=== PATIENT | female | born 1995 | race Hispanic/Latino ===

== ENCOUNTER 2017-03-19 15:57 | Emergency (ER) | payer MEDICAID ==
[~2017-03-19] VITALS: Ht 167.6 cm; Wt 95.3 kg
[~2017-03-19 15:57] MED LIST: CRUT1EAC7 MC; CYCL10TA9 PO; HYDR-3714 PO; HYDR-3812 PO; HYDR-757 PO; LISI1TAB PO; METO25TA PO; NAPR-243 PO; NAPR250T PO; ORPH100T PO; PRD20T PO; TRAM50TA2 PO
--- OUTSIDE RECORDS SUMMARY | 2017-03-19 16:02 | XMS REPORT | Continuity of Care Document ---
Author Author [facility] Organization [facility] Address Unknown Phone Unavailable Allergies Active Description Code Type Severity Reaction Onset Reported/Identified Relationship to Patient Clinical Status Yes Penicillins [id number] Drug Allergy Unknown N/A 09/04/2013 Yes ketorolac [id number] Drug Allergy Unknown RASH 04/10/2014 Yes trazodone [id number] Drug Allergy Moderate N/A 03/22/2015 Yes tramadol [id number] Drug Allergy Unknown N/A 05/26/2015 Yes acetaminophen [id number] Drug Allergy Unknown N/A 08/28/2015 Yes diphenhydramine [id number] Drug Allergy Unknown N/A 08/28/2015 Yes lisinopril [id number] Drug Allergy Unknown N/A 08/28/2015 Yes propoxyphene [id number] Drug Allergy Unknown N/A 08/28/2015 Medications Problems Date Dx Coded Attending Type Code Diagnosis Diagnosed By 09/04/2013 RADHA STEARNS FRUIT CULLER Ot 845.00 09/04/2013 RADHA STEARNS FRUIT CULLER Ot 959.7 09/04/2013 RADHA STEARNS FRUIT CULLER Ot E000.8 09/04/2013 RADHA STEARNS FRUIT CULLER Ot E927.0 10/14/2013 RADHA STEARNS FRUIT CULLER Ot 719.47 10/14/2013 RADHA STEARNS FRUIT CULLER Ot 845.00 10/14/2013 RADHA STEARNS FRUIT CULLER Ot E000.8 10/14/2013 RADHA STEARNS FRUIT CULLER Ot E927.0 11/27/2013 RADHA STEARNS FRUIT CULLER Ot 724.2 01/30/2014 FLO GONZALEZ DO Ot 724.5 01/30/2014 FLO GONZALEZ DO Ot E000.8 01/30/2014 FLO GONZALEZ DO Ot E884.9 04/10/2014 RADHA STEARNS FRUIT CULLER Ot 724.2 04/10/2014 RADHA STEARNS FRUIT CULLER Ot 847.1 04/10/2014 RADHA STEARNS FRUIT CULLER Ot E000.8 04/10/2014 RADHA STEARNS FRUIT CULLER Ot E849.0 04/10/2014 RADHA STEARNS FRUIT CULLER Ot E881.0 03/22/2015 KETAN CAMPBELL Ot F17.210 03/22/2015 KETAN CAMPBELL L Ot S29.002A 03/22/2015 KETAN CAMPBELL L Ot W17.89XA 03/22/2015 HERLINDA CAMPBELLEN L Ot Y92.018 03/22/2015 HERLINDA CAMPBELLEN L Ot Y99.8 05/26/2015 KETAN CAMPBELL L Ot F17.210 05/26/2015 KETAN CAMPBELL L Ot K03.81 05/26/2015 KETAN CAMPBELL L Ot M26.62 08/28/2015 KETAN CAMPBELL L Ot S83.91XA SPRAIN OF UNSPECIFIED SITE OF RIGHT KNEE 08/28/2015 KETAN CAMPBELL L Ot X58.XXXA EXPOSURE TO OTHER SPECIFIED FACTORS, INI 08/28/2015 LISA SHARMA KETAN L Ot Y99.8 OTHER EXTERNAL CAUSE STATUS Procedures Results Encounters ACCT No. Visit Date/Time Discharge Status Pt. Type Provider Facility Loc./Unit Complaint [id number] 08/28/2015 19:37:00 2015 21:19:00 DIS Emergency KETAN CAMPBELL [facility] ER [id number] 05/26/2015 14:12:00 2015 16:39:00 DIS Emergency KETAN CAMPBELL [facility] ER [id number] 03/22/2015 13:00:00 2014 15:04:00 DIS Emergency KETAN CAMPBELL [facility] ER [id number] 04/10/2014 14:48:00 2013 15:34:00 DIS Emergency RADHA STEARNS APRN [facility] ER [id number] 01/30/2014 16:04:00 2013 16:39:00 DIS Emergency CARLOS DO FLO Adis [facility] ER [id number] 11/27/2013 13:54:00 2013 14:31:00 DIS Emergency RADHA STEARNS APRN [facility] ER [id number] 10/14/2013 17:44:00 2013 18:46:00 DIS Emergency RADHA STEARNS APRN [facility] ER [id number] 09/04/2013 20:57:00 2013 22:02:00 DIS Emergency RADHA STEARNS APRN [facility] ER
--- NOTE | 2017-03-19 16:19 | ED EENT ---
History of Present Illness General Chief Complaint: Dental Problems/Pain Stated Complaint: DENTAL PAIN Nursing Triage Note: PATIENT BROKE A TOOTH 3 DAYS AGO AND IT IS CAUSING PAIN. SHE HAS NOT SEEN A DENTIST. Source: patient Exam Limitations: no limitations History of Present Illness Time seen by provider: 16:19 Initial Comments 21-year-old female patient presents to the emergency department with complaints of a broken tooth and dental pain for 3 days. Patient denies contacting a dentist. Denies using Tylenol and ibuprofen pyqc-iey-ekgarxm for pain. States she has had bad teeth for years. Timing/Duration: abrupt, other (3 day onset) Location: dental Prearrival Treatment: no prearrival treatment Modifying Factors: Worse With Other (worse with chewing, palpation, and hot/ cold liquids) Allergies and Home Medications Allergies Coded Allergies: trazodone (Verified Allergy, Intermediate, 03/22/15) Penicillins (Unverified Allergy, Unknown, 09/04/13) diphenhydramine (Verified Allergy, Unknown, 08/28/15) ketorolac (Unverified Allergy, Unknown, RASH, 04/10/14) lisinopril (Verified Allergy, Unknown, 08/28/15) propoxyphene (Verified Allergy, Unknown, 08/28/15) tramadol (Verified Adverse Reaction, Unknown, 05/26/15) seizure Home Medications Cyclobenzaprine HCl 10 Mg Tablet, 10 MG PO Q8H PRN for SPASMS, #10 Ref 0 Prescribed by: KETAN GONZALEZ on 03/22/15 1452 Hydrocodone/Acetaminophen 1 Each Tablet, 1 EACH PO Q4H PRN for PAIN, #14 Ref 0 Prescribed by: KETAN GONZALEZ on 08/28/15 2111 Hydrocodone/Acetaminophen 1 Each Tablet, 1 EACH PO Q6H PRN for PAIN, #4 Ref 0 Prescribed by: KETAN GONZALEZ on 03/19/17 1633 Prednisone 20 Mg Tab, 40 MG PO DAILY, #10 Ref 0 Prescribed by: KETAN GONZALEZ on 03/22/15 1452 Review of Systems Constitutional: No chills, No fever, No malaise Eyes: No Symptoms Reported Ears: No Symptoms Reported Nose: no symptoms reported Mouth: see HPI, pain, denies swelling Throat: denies pain, denies swelling, denies neck stiffness, denies hoarse, denies aphonia, denies muffled, denies painful swallowing, denies difficulty with fluids Respiratory: no symptoms reported Cardiovascular: no symptoms reported Gastrointestinal: no symptoms reported Skin: no symptoms reported Neurological: Denies Headache All Other Systems Reviewed Negative Unless Noted: Yes (Negative excepted noted.) Past Jlusnbq-Jrlfjp-Diwmcf Hx Patient Social History Recent Foreign Travel: No Contact w/Someone Who Travel: No Recent Infectious Disease Expo: No Immunizations Up To Date Tetanus Booster (TDap): Unknown PED Vaccines UTD: Yes Seasonal Allergies Seasonal Allergies: No Surgeries History of Surgeries: Yes Surgeries: Section, Orthopedic Respiratory History of Respiratory Disorde: No Cardiovascular History of Cardiac Disorders: Yes Cardiac Disorders: Hypertension Neurological History of Neurological Disord: No Reproductive System Hx 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 Genitourinary History of Genitourinary Disor: No Gastrointestinal History of Gastrointestinal Di: No Reviewed Nursing Assessment Reviewed/Agree w Nursing PMH: Yes Family Medical History Significant Family History: No Pertinent Family Hx Physical Exam Vital Signs Vital Sign - Last 12Hours 03/19/17 16:05 Temp 98.1 Pulse 90 Resp 18 B/P (MAP) 135/77 Pulse Ox 93 O2 Delivery Room Air General Appearance: WD/WN, no apparent distress Eyes: bilateral eye normal inspection, bilateral eye PERRL, bilateral eye EOMI Ears: bilateral ear auricle normal, bilateral ear canal normal, bilateral ear TM normal Nose: normal inspection Mouth/Throat: pharynx normal, dental tenderness (left lower dental tenderness with multiple caries and broken teeth noted. ), No excessive drooling, No mandibular swelling, No maxillary swelling, No trismus, No uvula swelling, No voice changes, No other (no swelling of the gums noted. ) Neck: non-tender, full range of motion, supple, normal inspection Cardiovascular: regular rate, rhythm, no murmur Respiratory: lungs clear, normal breath sounds, no respiratory distress, no accessory muscle use Neurologic/Psychiatric: alert, normal mood/affect, oriented x 3 Skin: normal color, warm/dry Progress/Results/Core Measures Results/Orders My Orders Orders - KETAN GONZALEZ Lidocaine 2% Viscous 15 Ml (Xylocaine Vi (03/19/17 16:30) Benzocaine Extension Tube (Hurricaine Ex (03/19/17 16:30) Vital Signs/I&O Vital Sign - Last 12Hours 03/19/17 16:05 Temp 98.1 Pulse 90 Resp 18 B/P (MAP) 135/77 Pulse Ox 93 O2 Delivery Room Air Blood Pressure Mean: 96 Departure Communication (Admissions) Progress Notes Patient seen and evaluated. Plan for dsch to home with f/u as an outpatient with the dentist of her choice for repair. Patient to call for appointment time. Impression Impression: Primary Impression: Dental caries Disposition: HOME, SELF-CARE Condition: Improved Departure-Patient Inst. Decision time for Depature: 16:28 Referrals: NO,LOCAL PHYSICIAN (PCP/Family) Primary Care Physician Patient Instructions: Fractured Tooth (DC), Dental Pain (DC) Add. Discharge Instructions: All discharge instructions reviewed with patient and/or family. Voiced understanding. Medications as instructed. Tylenol extra strength over-the- counter as directed for pain. Body temperature liquids and foods. Drink plenty of fluids. Ice pack or heating pad if needed. Follow-up with the dentist of your choice for recheck and dental repair. Call for appointment time. Return to the emergency department for worsened symptoms or any other concerns. Scripts Hydrocodone/Acetaminophen (Hydrocodon -Acetaminophen 5-325) 1 Each Tablet 1 EACH PO Q6H Y for PAIN, #4 TAB 0 Refills Prov: KETAN GONZALEZ 03/19/17 KETAN GONZALEZ Mar 19, 2017 16:19
[2017-03-19] MEDS ORDERED: HYDR-3812 PO ×2 (16:29→16:33)
[2017-03-19] MEDS ORDERED: LIDOCAINE 2% VISCOUS 15 ML UDC PO ONE (16:30)
[2017-03-19] MEDS ORDERED: HURRICAINE EXT TUBE (BENZOCAINE) XX ONE (16:30)
[2017-03-19 17:23] VITALS: BP 135/77
== END 2017-03-19 17:23 | disposition home or self-care (01) ==
LOC: EDUNIT# 15:57 → ER 15:58
DX: K02.9 Dental caries, unspecified (principal); I10 Essential (primary) hypertension; Z97.5 Presence of (intrauterine) contraceptive device; Z87.59 Personal history of other complications of pregnancy, childbirth and the puerperium
CPT/HCPCS: 99282

== ENCOUNTER 2018-01-23 13:11 | Emergency (ER) | payer MEDICAID ==
[~2018-01-23] VITALS: Ht 167.6 cm; Wt 96.2 kg
[~2018-01-23 13:11] MED LIST changes: +ACHD5005 PO; -HYDR-3812 PO
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
[2018-01-23] MEDS ORDERED: HYDR-4226 PO (15:31)
--- NOTE | 2018-01-23 15:31 | Diagnostic Imaging Report ---
INDICATION: Status post fall today, pain post fall. TECHNIQUE: Three views of the left wrist. CORRELATION STUDY: None. FINDINGS: Comminuted fracture involving the lunate. There is slight outward displacement of some of the fracture fragments; otherwise, the alignment is relatively anatomic. No additional acute bony abnormality suggested. Overall alignment generally anatomic. Soft tissue swelling present. IMPRESSION: Comminuted slightly outwardly displaced fracture involving the lunate. Dictated by: Dictated on workstation # [id number]
[2018-01-23 15:36] VITALS: BP 126/79
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
== END 2018-01-23 15:36 | disposition home or self-care (01) ==
LOC: EDUNIT# 13:11 → ER 13:18
DX: S62.92XA Unspecified fracture of left hand, initial encounter for closed fracture (principal); M25.532 Pain in left wrist; I10 Essential (primary) hypertension; Z97.5 Presence of (intrauterine) contraceptive device; Z79.52 Long term (current) use of systemic steroids; Z87.59 Personal history of other complications of pregnancy, childbirth and the puerperium; Z88.0 Allergy status to penicillin; Z88.4 Allergy status to anesthetic agent; Z88.6 Allergy status to analgesic agent; Z88.8 Allergy status to other drugs, medicaments and biological substances; V48.6XXA Car passenger injured in noncollision transport accident in traffic accident, initial encounter
CPT/HCPCS: 73110

== ENCOUNTER 2018-01-25 15:51 | Emergency (ER) | payer MEDICAID ==
[~2018-01-25 15:51] MED LIST changes: +HYDR-4226 PO
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
== END 2018-01-25 16:18 | disposition left against medical advice (07) ==
LOC: EDUNIT# 15:51 → ER 15:53
DX: M25.432 Effusion, left wrist (principal)

== ENCOUNTER 2018-02-05 18:04 | Emergency (ER) | payer SELFPAY ==
[~2018-02-05] VITALS: Ht 167.6 cm; Wt 96.2 kg
--- NOTE | 2018-02-05 20:19 | ED Upper Extremity ---
General Chief Complaint: Upper Extremity Stated Complaint: L WRIST PAIN,NOT WEARING SPLINT LIKE ADVISED Nursing Triage Note: LEFT WRIST PAIN. Nursing Sepsis Screen: No Definite Risk Source: patient, old records History of Present Illness Date Seen by Provider: Feb 05, 2018 Time Seen by Provider: 19:55 Initial Comments PT ARRIVES VIA POV C/O LEFT WRIST PAIN STATES SHE FELL ON 01/23/18 AND FRACTURED HER WRIST--SEEN HERE AND DX WITH LUNATE FRACTURE PT WAS SPLINTED, AND INSTRUCTED TO FOLLOW UP WITH [facility]. 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 AND HER WRIST POPPED SINCE THEN, SHE HAS HAD INCREASED PAIN HAS NOT TAKEN ANYTHING FOR PAIN PT HAS BEEN HERE 12 TIMES SINCE 2013--VARIOUS INJURIES/PAIN COMPLAINTS PER [facility], PT HAS RECEIVED 21 RX'S FOR NARCOTICS, BY 15 DIFFERENT PROVIDERS, FILLED AT 8 DIFFERENT PHARMACIES SINCE 03/2017 PT STATES SHE DOES NOT HAVE A PCP Allergies and Home Medications Allergies Coded Allergies: trazodone (Verified Allergy, Intermediate, 03/22/15) Penicillins (Unverified Allergy, Unknown, 09/04/13) diphenhydramine (Verified Allergy, Unknown, 08/28/15) ketorolac (Unverified Allergy, Unknown, RASH, 04/10/14) lisinopril (Verified Allergy, Unknown, 08/28/15) propoxyphene (Verified Allergy, Unknown, 08/28/15) tramadol (Verified Adverse Reaction, Unknown, 05/26/15) seizure Home Medications No Active Prescriptions or Reported Meds Patient Home Medication List Home Medication List Reviewed: Yes Review of Systems Constitutional: no symptoms reported : No (LMP 2 YEARS AGO--HAS IUD IN PLACE ) Control/STD Prophylaxis: IUD Musculoskeletal: see HPI Skin: no symptoms reported Psychiatric/Neurological: No Symptoms Reported Past Utdedok-Dhwmer-Jqbhlu Hx Patient Social History Alcohol Use: Denies Use Recreational Drug Use: No Smoking Status: Current Everyday Smoker Type Used: Cigarettes 2nd Hand Smoke Exposure: Yes Recent Foreign Travel: No Contact w/Someone Who Travel: No Recent Infectious Disease Expo: No Recent Hopitalizations: No Immunizations Up To Date Tetanus Booster (TDap): Unknown PED Vaccines UTD: Yes Seasonal Allergies Seasonal Allergies: No Past Medical History Surgeries: Yes (BILATERAL ANKLE SURGERIES) Section, Orthopedic Respiratory: No Cardiac: Yes Hypertension Neurological: No : No (IUD) 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 oz. 96.433780xh; 34.21 BMI Method:Stated General Appearance: WD/WN, no apparent distress Elbow/Forearm: normal inspection Wrist: Yes bone tenderness, Yes limited ROM, Yes pain, Yes soft tissue tenderness, Yes swelling (SLIGHT SWELLING. 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-XII nml as tested, no motor/sensory deficits, alert, normal mood/affect, oriented x 3 Skin: normal color, warm/dry Procedures/Interventions Splinting and Joint Reduction : Hand-Made Type: orthoglass Splint Application: Short Arm Progress/Results/Core Measures Results/Orders My Orders Orders - FLO GONZALEZ DO Wrist, Left, 3 Views Or More (02/05/18 19:58) Vital Signs/I&O 02/05/18 19:51 Temp 97.7 Pulse 80 Resp 18 B/P (MAP) 157/80 (105) Pulse Ox 96 O2 Delivery Room Air Blood Pressure Mean: 105 Progress Progress Note : Progress Note NO ORTHOPEDIC COVERAGE TODAY Diagnostic Imaging Comments XRAYS LEFT WRIST--FRAGMENTED LUNATE, UNCHANGED FROM PREVIOUS, PER RADIOLOGIST REPORT @ 2031 Reviewed: Reviewed by Me Departure Impression Primary Impression: Closed left lunate fracture Disposition: HOME, SELF-CARE Condition: Stable Departure-Patient Inst. Referrals: NO,LOCAL PHYSICIAN (PCP) Primary Care Physician KARENA ROJAS MD [facility]TH[facility] Patient Instructions: SPLINT CARE, Wrist Fracture (DC) Add. Discharge Instructions: WEAR SPLINT AT ALL TIMES ICE TO AREA AT 20 MINUTE INTERVALS ELEVATE HAND MUCH POSSIBLE TYLENOL AND MOTRIN NEEDED FOR PAIN FOLLOW UP WITH ORTHOPEDIC SURGEON OF CHOICE NEXT WEEK FOR FURTHER CARE--CALL IN AM FOR APPOINTMENT All discharge instructions reviewed with patient and/or family. Voiced understanding. Scripts No Active Prescriptions or Reported Meds FLO GONZALEZ DO Feb 05, 2018 20:19
--- NOTE | 2018-02-05 20:28 | Diagnostic Imaging Report ---
EXAMINATION: Left wrist, 3 views. COMPARISON: January 23, 2018. HISTORY: 22-year-old female, injury. Left wrist pain. FINDINGS: There is redemonstrated fragmentation of the lunate. The overall appearance is unchanged since the comparison exam. There is apparent negative ulnar variance. Additional bone alignment is unremarkable. There is no otherwise identified fracture. There is no radiopaque foreign body. IMPRESSION: 1. Fragmented lunate with negative ulnar variance. The lunate is not particularly appear dense, radiographically. This potentially may reflect avascular necrosis of the lunate rather than a comminuted lunate fracture. Recommend correlation clinically and further assessment with MRI left wrist if the distinction may impact management. 2. No otherwise identified bone abnormality of the left wrist. Dictated by: Dictated on workstation # [id number]
[2018-02-05 20:54] VITALS: BP 157/80
== END 2018-02-05 20:53 | disposition home or self-care (01) ==
LOC: EDUNIT# 18:04 → ER 18:06
DX: S62.92XA Unspecified fracture of left hand, initial encounter for closed fracture (principal); I10 Essential (primary) hypertension; F17.210 Nicotine dependence, cigarettes, uncomplicated; Z98.890 Other specified postprocedural states; Z88.8 Allergy status to other drugs, medicaments and biological substances; Z88.0 Allergy status to penicillin; Z88.6 Allergy status to analgesic agent; Z97.5 Presence of (intrauterine) contraceptive device; X50.1XXA Overexertion from prolonged static or awkward postures, initial encounter; Y92.59 Other trade areas as the place of occurrence of the external cause; Y99.0 Civilian activity done for income or pay
CPT/HCPCS: 29105; 73110

== ENCOUNTER 2020-09-18 18:27 | Emergency (ER) | payer SELFPAY ==
[~2020-09-18] VITALS: Ht 167 cm; Wt 127.0 kg
[~2020-09-18 18:27] MED LIST changes: -TRAM50TA2 PO; +TRM50T PO
--- NOTE | 2020-09-18 18:40 | ED Abdominal Pain ---
General Chief Complaint: Abdominal/GI Problems Stated Complaint: R SIDE ABD PAIN Nursing Triage Note: RUQ PAIN STARTING AT APPX 1500. STATES SHE ATES SONIC FOR LUNCH. Sepsis Screen: No Definite Risk Source of Information: Patient Exam Limitations: No Limitations History of Present Illness Date Seen by Provider: Sep 18, 2020 Time Seen by Provider: 18:39 Initial Comments To ER by private vehicle with reports of severe right upper quadrant abdominal pain that began about 3 PM today. She ate Sonic for lunch. No diarrhea no nausea. Timing/Duration: 4-6 Hours Severity/Quality: Severe Location: RUQ Radiation: No Radiation Activities at Onset: None Allergies and Home Medications Allergies Coded Allergies: trazodone (Verified Allergy, Intermediate, 03/22/15) Penicillins (Unverified Allergy, Unknown, 09/04/13) diphenhydramine (Verified Allergy, Unknown, 08/28/15) ketorolac (Unverified Allergy, Unknown, RASH, 04/10/14) lisinopril (Verified Allergy, Unknown, 08/28/15) oxycodone (Verified Allergy, Unknown, 09/18/20) propoxyphene (Verified Allergy, Unknown, 08/28/15) tramadol (Verified Adverse Reaction, Unknown, 05/26/15) seizure Home Medications No Active Prescriptions or Reported Meds Review of Systems Review of Systems Constitutional: see HPI EENTM: No Symptoms Reported Respiratory: No Symptoms Reported Cardiovascular: No Symptoms Reported Gastrointestinal: See HPI, Abdominal Pain Genitourinary: No Symptoms Reported Musculoskeletal: no symptoms reported Skin: no symptoms reported Psychiatric/Neurological: No Symptoms Reported Endocrine: No Symptoms Reported Hematologic/Lymphatic: No Symptoms Reported Past Gmoqcgl-Yqrfsf-Jhwpvt Hx Patient Social History Alcohol Use: Denies Use Smoking Status: Current Everyday Smoker Type Used: Cigarettes 2nd Hand Smoke Exposure: Yes Recent Infectious Disease Expo: No Recent Hopitalizations: No Immunizations Up To Date Tetanus Booster (TDap): Unknown PED Vaccines UTD: Yes Seasonal Allergies Seasonal Allergies: No Past Medical History Surgeries: Yes (BILATERAL ANKLE SURGERIES) Section, Orthopedic Respiratory: No Cardiac: Yes Hypertension Neurological: No Reproductive Disorders: No 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 oz. 96.895190hz; 45.00 BMI Method:Stated General Appearance: WD/WN, moderate distress, obese, other (Tachypnea related to pain) Neck: non-tender Respiratory: no respiratory distress, no accessory muscle use Cardiovascular: regular rate, rhythm, no murmur Gastrointestinal: normal bowel sounds, soft, tenderness Extremities: normal range of motion, non-tender Neurologic/Psychiatric: alert, normal mood/affect Skin: normal color, warm/dry Progress/Results/Core Measures Results/Orders Lab Results Laboratory Tests Test 09/18/20 18:38 09/18/20 18:45 Range/Units Urine Color YELLOW Urine Clarity CLEAR Urine pH 6.5 5-9 Urine Specific [place] <=1.005 1.016-1.022 Urine Protein NEGATIVE NEGATIVE Urine Glucose (UA) NEGATIVE NEGATIVE Urine Ketones NEGATIVE NEGATIVE Urine Nitrite NEGATIVE NEGATIVE Urine Bilirubin NEGATIVE NEGATIVE Urine Urobilinogen 0.2 < = 1.0 MG/DL Urine Leukocyte Esterase NEGATIVE NEGATIVE Urine RBC (Auto) NEGATIVE NEGATIVE Urine RBC NONE /HPF Urine WBC NONE /HPF Urine Squamous Epithelial Cells 5-10 /HPF Urine Crystals PRESENT H /LPF Urine Amorphous Sediment RARE BLAYNE URATES H /LPF Urine Bacteria TRACE /HPF Urine Casts NONE /LPF Urine Mucus NEGATIVE /LPF Urine Culture Indicated NO White Blood Count 10.9 4.3-11.0 10^3/uL Red Blood Count 4.82 3.80-5.11 10^6/uL Hemoglobin 14.3 11.5-16.0 g/dL Hematocrit 44 35-52 % Mean Corpuscular Volume 91 80-99 fL Mean Corpuscular Hemoglobin 30 25-34 pg Mean Corpuscular Hemoglobin Concent 33 32-36 g/dL Red Cell Distribution Width 13.2 10.0-14.5 % Platelet Count 427 H 130-400 10^3/uL Mean Platelet Volume 9.9 9.0-12.2 fL Immature Granulocyte % (Auto) 1 % Neutrophils (%) (Auto) 71 42-75 % Lymphocytes (%) (Auto) 22 12-44 % Monocytes (%) (Auto) 6 0-12 % Eosinophils (%) (Auto) 1 0-10 % Basophils (%) (Auto) 0 0-10 % Neutrophils # (Auto) 7.8 1.8-7.8 10^3/uL Lymphocytes # (Auto) 2.4 1.0-4.0 10^3/uL Monocytes # (Auto) 0.6 0.0-1.0 10^3/uL Eosinophils # (Auto) 0.1 0.0-0.3 10^3/uL Basophils # (Auto) 0.0 0.0-0.1 10^3/uL Immature Granulocyte # (Auto) 0.1 0.0-0.1 10^3/uL My Orders Orders - RADHA STEARNS DISTRIBUTION SUPERINTENDENT Cbc With Automated Diff (09/18/20 18:33) Hcg,Qualitative Serum (09/18/20 18:33) Comprehensive Metabolic Panel (09/18/20 18:33) Lipase (09/18/20 18:33) Ua Culture If Indicated (09/18/20 18:33) Drug Screen Stat (Urine) (09/18/20 18:33) Ed Iv/Invasive Line Start (09/18/20 18:33) Fentanyl Inj (Sublimaze Injection) (09/18/20 18:45) Hyoscyamine Sl Tablet (Levsin Sl Tablet) (09/18/20 18:45) Ns Iv 1000 Ml (Sodium Chloride 0.9%) (09/18/20 18:45) Iohexol Injection (Omnipaque 350 Mg/Ml 1 (09/18/20 19:00) Received Contrast (Hold Metformin- Contr (09/18/20 19:00) Ns (Ivpb) (Sodium Chloride 0.9% Ivpb Bag (09/18/20 19:00) Ketamine Injection (Ketalar Injection) (09/18/20 19:00) Ct Abdomen/Pelvis Wo (09/18/20 18:33) Medications Given in ED Current Medications Medications Dose Ordered Sig/Erum Route Start Time Stop Time Status Last Admin Dose Admin Hyoscyamine Sulfate 0.25 mg ONCE ONCE PO 09/18/20 18:45 09/18/20 18:46 DC 09/18/20 18:46 0.25 MG Vital Signs/I&O 09/18/20 18:33 Temp 36.5 Pulse 105 Resp 16 B/P (MAP) 154/111 (125) Pulse Ox 98 O2 Delivery Room Air Blood Pressure Mean: 125 Departure Communication (Admissions) 184-after questioning (and only after questioning) she reports that she was at [facility] 3-4 days ago with this abdominal pain and had a normal ga llbladder ultrasound but then had a hepatobiliary scan at the [facility] and was told it wasnt functioning right. She has an extensive opiate prescription history from a multitude of providers. 190-[facility] to whom the [facility] refers most of their imaging studies. They state that she has never had a hepatobiliary scan there. I then questioned the patient about this and she informs me now that she actually missed the appointment. 1909-patient now states that she does not want the IV fluids, she just wants to go home and take the medication she has there. Impression Primary Impression: RUQ abdominal pain Disposition: HOME, SELF-CARE Condition: Stable Departure-Patient Inst. Decision time for Depature: 19:10 Referrals: NO,LOCAL PHYSICIAN (PCP/Family) Primary Care Physician Patient Instructions: Abdominal Pain, Adult ED Add. Discharge Instructions: . Follow-up with your doctor next week. Return to ER for any concerns. All discharge instructions reviewed with patient and/or family. Voiced understanding. Scripts No Active Prescriptions or Reported Meds RADHA STEARNS APRN Sep 18, 2020 18:40
[2020-09-18 18:45] LABS: BILIRUBIN,URINE NEGATIVE (NEGATIVE); CLARITY,URINE CLEAR; COLOR,URINE YELLOW; GLUCOSE, URINE (UA) NEGATIVE (NEGATIVE); KETONES,URINE NEGATIVE (NEGATIVE); LEUKOCYTE ESTERASE ,URINE NEGATIVE (NEGATIVE); NITRITE,URINE NEGATIVE (NEGATIVE); PH,URINE 6.5 (5-9); PROTEIN,URINE NEGATIVE (NEGATIVE)
[2020-09-18] MEDS ORDERED: NS IV 1000 ML 1,000 ML IV SCH (18:45)
[2020-09-18] MEDS ORDERED: fentaNYL INJ 100 MCG/2 ML AMP IVP ONE (18:45)
[2020-09-18] MEDS ORDERED: HYOSCYAMINE 0.125 MG (LEVSIN) TAB PO ONE (18:45)
[2020-09-18 18:55] LABS: BASOPHILS % (AUTO) 0 % (0-10); EOSINOPHILS # (AUTO) 0.1 10^3/uL (0.0-0.3); EOSINOPHILS % (AUTO) 1 % (0-10); HEMATOCRIT 44 % (35-52); HEMOGLOBIN 14.3 g/dL (11.5-16.0); LYMPHOCYTES # (AUTO) 2.4 10^3/uL (1.0-4.0); LYMPHOCYTES % (AUTO) 22 % (12-44); MEAN CORPUSCULAR HEMOGLOBIN 30 pg (25-34); MEAN CORPUSCULAR HGB CONC 33 g/dL (32-36); MEAN CORPUSCULAR VOLUME 91 fL (80-99); MEAN PLATELET VOLUME 9.9 fL (9.0-12.2); MONOCYTES # (AUTO) 0.6 10^3/uL (0.0-1.0); MONOCYTES % (AUTO) 6 % (0-12); NEUTROPHILS # (AUTO) 7.8 10^3/uL (1.8-7.8); NEUTROPHILS % (AUTO) 71 % (42-75); PLATELET COUNT 427 10^3/uL (130-400); WHITE BLOOD COUNT 10.9 10^3/uL (4.3-11.0)
[2020-09-18] MEDS ORDERED: IOHEXOL 350 MG/ML 100 ML (OMNIPAQUE 350) VIAL IV ONE (19:00)
[2020-09-18] MEDS ORDERED: NS 100 ML (IVPB) BAG IV ONE (19:00)
[2020-09-18] MEDS ORDERED: KETAMINE HCL 100 MG/ML 5 ML VIAL IV ONE (19:00)
[2020-09-18] MEDS ORDERED: HOLD METFORMIN - RECEIVED CONTRAST 20 ML VIAL IV SCH (19:00)
[2020-09-18 19:02] LABS: BACTERIA,URINE TRACE /HPF
[2020-09-18 19:03] LABS: AMORPHOUS SEDIMENT,UR RARE AMOR URATES /LPF
--- NOTE | 2020-09-18 19:06 | Diagnostic Imaging Report ---
PROCEDURE: CT abdomen and pelvis without contrast. TECHNIQUE: Multiple contiguous axial images were obtained through the abdomen and pelvis without the use of intravenous contrast. Auto Exposure Controls were utilized during the CT exam to meet ALARA standards for radiation dose reduction. INDICATION: Right upper quadrant pain COMPARISON: No relevant comparison. I cannot identify the appendix but there is no pericecal or right lower quadrant inflammatory changes to suggest appendicitis. The uterus, adnexa and urinary bladder appeared unremarkable. There are no radiopaque urinary tract calculi and there is no hydroureteronephrosis. No perinephric or periureteric edema. The liver, gallbladder, bile ducts, spleen, adrenals and pancreas appeared unremarkable. There are fatty umbilical and periumbilical hernias with the hernial orifice having a diameter of about 4 cm. No herniation of viscus. No abdominal wall fluid collection. There is no pneumatosis or free air and there is no perienteric or pericolonic edema. No ascites, abscess, hematoma or other acute fluid collection and no focal inflammatory process identified. IMPRESSION: Fatty umbilical hernias. There are no obstructive features, inflammatory process or acute abnormalities identified. No radiopaque stone disease. Dictated by: Dictated on workstation # [id number]
[2020-09-18 19:09] LABS: ALANINE AMINOTRANSFERASE 22 U/L (0-55); ALBUMIN 4.3 GM/DL (3.2-4.5); ALKALINE PHOSPHATASE 85 U/L (40-136); BILIRUBIN,TOTAL 0.4 MG/DL (0.1-1.0); BUN/CREATININE RATIO 9; CALCIUM 10.1 MG/DL (8.5-10.1); CARBON DIOXIDE 22 MMOL/L (21-32); CHLORIDE 103 MMOL/L (98-107); CREATININE SERUM 0.78 MG/DL (0.60-1.30); GFR ESTIMATED > 60; GLUCOSE 110 MG/DL (70-105); POTASSIUM 4.1 MMOL/L (3.6-5.0); SODIUM 138 MMOL/L (135-145); TOTAL PROTEIN 7.6 GM/DL (6.4-8.2)
[2020-09-18 19:16] LABS: AMPHETAMINE SCREEN, URINE NEGATIVE (NEGATIVE); BARBITURATE SCREEN URINE NEGATIVE (NEGATIVE); BENZODIAZEPINES SCREEN URINE NEGATIVE (NEGATIVE); CANNABINOID SCREEN, URINE NEGATIVE (NEGATIVE); COCAINE SCREEN URINE NEGATIVE (NEGATIVE); METHADONE STAT NEGATIVE (NEGATIVE); METHAMPHETAMINE SCREEN URINE S NEGATIVE (NEGATIVE); OPIATE SCREEN URINE POSITIVE (NEGATIVE); OXYCODONE STAT NEGATIVE (NEGATIVE); PROPOXYPHENE STAT NEGATIVE (NEGATIVE); TRICYCLIC ANTIDEPRESSANTS SCRE NEGATIVE (NEGATIVE)
[2020-09-18 19:20] VITALS: BP 130/95
[2020-09-18 19:26] LABS: LIPASE 21 U/L (8-78)
== END 2020-09-18 19:21 | disposition home or self-care (01) ==
LOC: EDUNIT# 18:27 → ER 18:28
DX: R10.11 Right upper quadrant pain (principal); E66.9 Obesity, unspecified; I10 Essential (primary) hypertension; F17.210 Nicotine dependence, cigarettes, uncomplicated; Z68.42 Body mass index [BMI] 45.0-49.9, adult; Z88.0 Allergy status to penicillin; Z88.5 Allergy status to narcotic agent; Z88.6 Allergy status to analgesic agent; Z88.8 Allergy status to other drugs, medicaments and biological substances
CPT/HCPCS: 36415; 74176; 80053; 80306; 81000; 83690; 84703; 85025